=== PATIENT | male | born 1955 | race Caucasian/White ===

== ENCOUNTER → 2018-11-16 | Outpatient (REF) ==
[~2018-11-16] MED LIST: CHOL200018 PO; NO ROUTINE MEDS; OMEG-96 PO
== END ==
LOC: AMB 17:35
PROVIDERS: ATTEND Nurse Practitioner
DX: Z02.9 Encounter for administrative examinations, unspecified (principal)

== ENCOUNTER 2019-02-13 12:00 | Outpatient (RCR) | payer OTHER ==
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
== END 2019-02-13 14:36 | disposition home or self-care (01) ==
LOC: ST 12:00
PROVIDERS: ATTEND Family Medicine
DX: S06.0X1A Concussion with loss of consciousness of 30 minutes or less, initial encounter (principal)
CPT/HCPCS: 92523